=== PATIENT | male | born 1970 | race Caucasian/White ===

== ENCOUNTER 2025-05-28 06:35 | Day surgery (SDC) | payer OTHER, SELFPAY | END 2025-05-28 14:57 | disposition home or self-care (01) | LOC: GI 06:35 | PROVIDERS: ATTENDING PHYSICIAN Internal Medicine | DX: D50.9 Iron deficiency anemia, unspecified (principal); K62.4 Stenosis of anus and rectum; K64.8 Other hemorrhoids; K64.4 Residual hemorrhoidal skin tags; K57.30 Diverticulosis of large intestine without perforation or abscess without bleeding; K44.9 Diaphragmatic hernia without obstruction or gangrene; Q39.9 Congenital malformation of esophagus, unspecified; K31.89 Other diseases of stomach and duodenum; R13.10 Dysphagia, unspecified; K29.50 Unspecified chronic gastritis without bleeding; B96.81 Helicobacter pylori [H. pylori] as the cause of diseases classified elsewhere; K29.80 Duodenitis without bleeding | CPT/HCPCS: 45378; 43239; 88305; 88342 ==

== ENCOUNTER 2025-06-25 09:09 | Outpatient (RCR) | payer OTHER, SELFPAY ==
[2025-06-18 14:31] VITALS: BP 149/85
[2025-06-18] MEDS: VENOFER 110 MG IV (14:57)
[2025-06-25 09:25] VITALS: BP 137/84
[2025-06-25] MEDS: VENOFER 110 MG IV (09:38)
[2025-06-25 11:50] VITALS: BP 148/86
== END 2025-06-26 23:59 | disposition home or self-care (01) ==
LOC: OID 09:09
PROVIDERS: ATTENDING PHYSICIAN Internal Medicine; FAMILY PHYSICIAN Family Medicine
DX: D50.0 Iron deficiency anemia secondary to blood loss (chronic) (principal); Z79.01 Long term (current) use of anticoagulants; K57.92 Diverticulitis of intestine, part unspecified, without perforation or abscess without bleeding; K57.32 Diverticulitis of large intestine without perforation or abscess without bleeding
CPT/HCPCS: 96365; J1756

== ENCOUNTER 2025-07-16 10:27 | Outpatient (RCR) | payer OTHER, SELFPAY ==
[2025-07-02 09:22] VITALS: BP 151/71
[2025-07-02] MEDS: VENOFER 110 MG IV (09:31)
[2025-07-02 10:40] VITALS: BP 162/75
[2025-07-09 09:55] VITALS: BP 162/90
[2025-07-09] MEDS: VENOFER 110 MG IV (10:09)
[2025-07-09 11:32] VITALS: BP 141/74
[2025-07-16] MEDS: VENOFER 110 MG IV (11:07)
[2025-07-16 11:11] VITALS: BP 137/87
[2025-07-16 12:35] VITALS: BP 156/80
== END 2025-07-17 09:42 | disposition home or self-care (01) ==
LOC: OID 10:27
PROVIDERS: ATTENDING PHYSICIAN Internal Medicine; FAMILY PHYSICIAN Family Medicine
DX: D50.0 Iron deficiency anemia secondary to blood loss (chronic) (principal); K57.92 Diverticulitis of intestine, part unspecified, without perforation or abscess without bleeding; Z79.01 Long term (current) use of anticoagulants
CPT/HCPCS: 96365; J1756